=== PATIENT | female | born 1975 | race American Indian/Alaskan Native ===

== ENCOUNTER 2018-12-17 09:11 | Day surgery (SDC) | payer MEDICAID ==
[~2018-12-17 09:11] MED LIST: CLEOCIN 600 MG/50 mL 600 MG/50 ML BAG IV NR; FLAGYL 500 MG/100 ML 500 MG/100 ML BAG IV NR; GENTAMICIN 160 MG in NACL 0.9% 100 ML IV SCH; GENTAMICIN IV SCH
--- NOTE | 2018-12-17 09:52 | Anesthesia Consultation ---
Anesthesia Consult and Med Hx Date of service: 12/17/18 - Airway Anesthetic Teeth Evaluation: Edentulous ROM Head & Neck: Adequate Mental/Hyoid Distance: Adequate Mallampati Class: Class I Intubation Access Assessment: Good - Pulmonary Exam CTA: Yes - Cardiac Exam Cardiac Exam: RRR - Pre-Operative Health Status ASA Pre-Surgery Classification: ASA3 Proposed Anesthetic Plan: General - Pulmonary Hx Asthma: Yes (no albuterol use in several months) Hx Respiratory Symptoms: No - Cardiovascular System Hx Hypertension: Yes (took metoprolol and losartan this morning) Hx Coronary Artery Disease: No (normal LHC this year) Hx Heart Attack/AMI: No Hx Percutaneous Transluminal Coronary Angioplasty (PTCA): No Hx Cardia Arrhythmia: Yes (EKG w/ occ. PVCs) - Central Nervous System Hx Seizures: No CVA: No Hx Psychiatric Problems: Yes (anxiety on chronic benzos, PTSD) - Gastrointestinal Hx Gastroesophageal Reflux Disease: Yes - Endocrine Hx Renal Disease: Yes (normal telehealth case manager/eGFR on recent labs) Hx Liver Disease: No Hx Insulin Dependent Diabetes: No Hx Non-Insulin Dependent Diabetes: Yes Hx Thyroid Disease: No - Hematic Hx Anemia: Yes - Other Systems Hx Obesity: Yes (s/p gastric bypass) - Additional Comments Anesthesia Medical History Comments: Hx PONV with some prior anesthetics.
[2018-12-17] MEDS ORDERED: PEPCID IV NR (09:53)
[2018-12-17] MEDS ORDERED: SUBLIMAZE IV PRN (09:53)
--- NOTE | 2018-12-17 09:53 | Anesthesia Day of Surgery ---
Anesthesia Day of Surgery - Day of Surgery Patient Examined: Yes Patient H&P Reviewed: Yes Patient is NPO: Yes Beta Blockers: Yes
[2018-12-17] MEDS ORDERED: LACTATED RINGERS 1,000 ML IV SCH (10:00)
[2018-12-17] MEDS ORDERED: TRANSDERM-SCOP TD NR (10:00)
[2018-12-17] MEDS ORDERED: ZOFRAN ONE ×2 (10:08→12:09)
[2018-12-17] MEDS ORDERED: SUBLIMAZE ONE (10:08)
[2018-12-17] MEDS ORDERED: MARCAINE-EPI 0.5%-1:200,000 INFILTRATI ONE ×2 (10:08→11:24)
[2018-12-17] MEDS ORDERED: XYLOCAINE 1% 20 mL ONE (10:09)
[2018-12-17] MEDS ORDERED: DIPRIVAN 10 MG/ML IV ONE (10:09)
[2018-12-17] MEDS: VERSED IV NR ×2 (10:15→10:25)
[2018-12-17] MEDS ORDERED: LOVENOX SUB-Q NR (11:00)
[2018-12-17] MEDS ORDERED: XYLOCAINE 1% 20 mL INFILTRATI ONE (11:25)
[2018-12-17] MEDS ORDERED: NACL 0.9% IR ONE (11:26)
[2018-12-17] MEDS ORDERED: DECADRON ONE (12:09)
[2018-12-17] MEDS ORDERED: ROBINUL ONE (12:09)
[2018-12-17] MEDS ORDERED: TORADOL ONE (12:09)
[2018-12-17] MEDS ORDERED: ZEMURON IV ONE (12:09)
[2018-12-17] MEDS ORDERED: BLOXIVERZ ONE (12:09)
[2018-12-17 13:48] VITALS: BP 98/60
--- NOTE | 2018-12-17 16:14 | Post Anesthesia Evaluation ---
- Post Anesthesia Evaluation Patient Participated: Yes Airway Patent: Yes Stable Respiratory Function: Yes Nausea/Vomiting: No Temp > 96.8F: Yes Pain Manageable: Yes Adequeate Hydration: Yes Anesthesia Complications: No
--- NOTE | 2018-12-17 16:33 | Operative Report ---
SURGEON: Chaitanya Duong MD [employer]: Jose Eduardo Miller MD, Fellow; Tiffany Solo MD, CSA PREOPERATIVE DIAGNOSES: 1. Nausea and vomiting. 2. Periumbilical abdominal pain, intermittent and chronic. 3. 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 POSTOPERATIVE DIAGNOSES: 1. Nausea and vomiting. 2. Periumbilical abdominal pain, intermittent and chronic. 3. 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 PROCEDURE: 1. Diagnostic laparoscopy. 2. Lysis of adhesions. 3. Repair of internal hernia. 4. Removal of foreign body. ANESTHESIA: General endotracheal anesthesia. COMPLICATIONS: None. BLEEDING: Minimal. SPECIMENS: Foreign body. INDICATIONS: The patient is a 43-year-old female with a history of a gastric bypass in 2004 in [place]. She has had subsequent GJ revisions in 2013 and most recently in 2017, a GJ revision with biliopancreatic limb lengthening by Dr. Duong. She has complained of intermittent nausea and vomiting associated with periumbilical abdominal pain for the last several months. She underwent an endoscopy that showed a normal post-revision anatomy with a pouch of 40 mL and anastomosis of 15 mm. Due to her continued symptoms, a diagnostic laparoscopy was recommended. The risks, complications and alternatives were explained to the patient and informed consent was obtained. DESCRIPTION OF PROCEDURE: The patient was brought to the operating room, where she was placed in the supine position and underwent general endotracheal intubation. She received preoperative antibiotics and DVT prophylaxis. A timeout was called to ensure proper patient, indication, and operation after she was prepped and draped in the usual sterile fashion. Local analgesia was injected around the umbilical region and a small stab incision was made at the base with insertion of a Veress needle. Insufflation pressures were achieved to 15 mmHg. The incision was slightly widened and a 5 mm trocar was inserted. Under direct visualization, additional 5 mm trocars were placed in the right lateral quadrant and left lateral quadrant. Upon inspection, she had minor adhesions of the omentum to the anterior abdominal wall. This was centered mostly in the left upper quadrant. I took these down with an L-hook cautery and I could see that she had had a prior gastrostomy tube here in her remnant stomach. I removed a small 2 cm piece of plastic catheter-like material. This was entirely removed and sent to pathology for gross. Adhesions were continued to be taken down from the left lateral anterior abdominal wall. I did not take down the prior G-tube site as it was quite adherent, there was evidence of prior sutures present. She had a retrocolic anatomy identified her JJ anastomosis and she had a small internal hernia here at the JJ that was reduced and this adhesion was lysed. I then ran her small bowel first retrograde from the JJ to the ligament of Treitz. She had quite a long biliopancreatic limb. There were no abnormalities of this and the rest was normal. I then ran her JJ antegrade to the terminal ileum. She had adhesions in the distal small bowel that were lysed and freed, but otherwise was normal. The colon, liver and spleen were all normal with no abnormality. I examined the JJ again and there was no other evidence of any internal hernias present. The internal hernia that was there was reduced. She did have evidence of chronic obstruction as her lymphatics were quite visible and engorged. I did not see any other evidence of any foreign body present. After inspection of her abdominal cavity and finding no other abnormalities other than the internal hernia and adhesions, the gas was desufflated. The ports were removed under direct visualization. The ports were all closed with 4-0 Monocryl and additional local was injected into the wound sites. Sterile bandages were placed over top. The patient was then extubated and left the operating room in stable condition. Counts were correct. FINDINGS: 1. 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 An internal hernia that was present that was reduced and repaired. 2. Adhesions present from the prior G-tube in the remnant as well as in the distal small bowel. Adhesions present at the JJ that were lysed. 3. A piece of foreign body that appears to be a tubing catheter found in the prior G-tube site that was removed from the abdominal cavity. JOB# [id number] VANESSA/USMAN DELGADO
== END 2018-12-17 14:20 | disposition home or self-care (01) ==
LOC: OR 09:11
PROVIDERS: ATTEND Specialist
DX: K45.8 Other specified abdominal hernia without obstruction or gangrene (principal); I25.10 Atherosclerotic heart disease of native coronary artery without angina pectoris; I10 Essential (primary) hypertension; K21.9 Gastro-esophageal reflux disease without esophagitis; F32.9 Major depressive disorder, single episode, unspecified; F41.9 Anxiety disorder, unspecified; E11.9 Type 2 diabetes mellitus without complications; M79.7 Fibromyalgia; M19.90 Unspecified osteoarthritis, unspecified site; G43.909 Migraine, unspecified, not intractable, without status migrainosus; Z88.8 Allergy status to other drugs, medicaments and biological substances; Z88.0 Allergy status to penicillin; Z79.899 Other long term (current) drug therapy; Z90.49 Acquired absence of other specified parts of digestive tract; Z90.710 Acquired absence of both cervix and uterus; Z98.890 Other specified postprocedural states; Z86.2 Personal history of diseases of the blood and blood-forming organs and certain disorders involving the immune mechanism
CPT/HCPCS: 44238; 49999; 88300; J1100; J1580; J1650; J1885; J2250; J2405; J2704; J2710; J3010; J7120; 88302